=== PATIENT | female | born 1955 | race Caucasian/White ===

== ENCOUNTER → 2017-02-20 | Outpatient (CLI) | payer MEDICARE, OTHER ==
[~2017-02-20] MED LIST: AUGMENTIN TAB875 MG PO; BREO ELLIPTA 11 EACH INH; COMBIVENT0.074 GM/I INH; DALIRESP500 MCG PO; FLONASE 0.05% N16 GM; FLOVENT DISKUS50 MCG INH; KETOROLAC TROME10 MG PO; LEVOFLOXACIN500 MG PO; LISINOPRIL5 MG PO; NEURONTIN600 MG PO; NORCO 7.5-3251 EACH PO; OMEPRAZOLE20 M1 PO; OXYGEN; PHENERGAN 25 MG25 M1 PO; SPIRIVA18 MCG INH; SYNTHROID25 MCG PO; TRAZODONE HCL150 MG PO; XARELTO20 MG PO
== END ==
LOC: CT 14:17
DX: Z87.891 Personal history of nicotine dependence (principal)
CPT/HCPCS: G0297

== ENCOUNTER → 2021-01-25 | Outpatient (CLI) | payer MEDICARE, OTHER ==
[~2021-01-25] MED LIST changes: +COMBIVENT RESPIM4 GM INH; +FENOFIBRATE54 MG PO; +FISH OIL 1,0001 EACH PO; +HYDROCHLOROTHIA25 MG PO; +HYDROXYZINE HCL25 MG PO; +HYDROXYZINE PAM25 MG PO; +LORATADINE10 MG PO; +MONTELUKAST SOD10 MG PO; +SIMETHICONE80 MG PO; +VITAMIN D21250 MCG PO
== END ==
LOC: RAD 12:58
DX: R06.02 Shortness of breath (principal)
CPT/HCPCS: 71046